=== PATIENT | female | born 2000 | race Caucasian/White ===

== ENCOUNTER 2021-09-07 22:26 | Inpatient (IN) ==
[2021-09-07 22:50] VITALS: BMI 36.0
[2021-09-07] MEDS ORDERED: NORMODYNE TAB 100 MG PO ONE (23:22)
[2021-09-07] MEDS ORDERED: NORMODYNE TAB 100 MG ONE (23:27)
[2021-09-07 23:28] LABS: BILIRUBIN,URINE NEGATIVE (NEGATIVE); BLOOD/HEMOGLOBIN,URINE NEGATIVE (NEGATIVE); GLUCOSE, URINE NEGATIVE (NEGATIVE); KETONES,URINE NEGATIVE (NEGATIVE); LEUKOCYTE ESTERASE ,URINE 1+ (NEGATIVE); NITRITES,URINE NEGATIVE (NEGATIVE); PROTEIN,URINE 3+ (NEGATIVE); UROBILINOGEN,URINE NORMAL (NORMAL)
[2021-09-07 23:33] LABS: APPEARANCE,URINE CLEAR (CLEAR); BACTERIA,URINE NEGATIVE /HPF (NEGATIVE); COLOR,URINE STRAW (YELLOW); RBC,URINE NONE SEEN /HPF (0-3); SQUAMOUS EPITHELIAL CELL,UR FEW /HPF (NEGATIVE)
[2021-09-07 23:34] LABS: AMNISURE ROM TEST NO MEMBRANES RUPTURE (NO RUPTURE)
[2021-09-08 00:12] LABS: HEMOGLOBIN 11.9 g/dL (12.0-16.0); MEAN CORPUSCULAR HEMOGLOBIN 25.2 pg (27.0-34.0); MEAN PLATELET VOLUME 9.3 fL (7.4-11.0)
[2021-09-08 00:16] LABS: BASOPHILS % (AUTO) 0.3 % (0.2-1.0); EOSINOPHILS # (AUTO) 0.2 x10^3/uL (0.0-0.2); EOSINOPHILS % (AUTO) 1.5 % (0.9-2.9); HEMATOCRIT 36.1 % (36.0-47.0); INR 1.03 (0.8-1.3); LYMPHOCYTES # (AUTO) 4.4 X10^3/uL (1.3-2.9); LYMPHOCYTES % (AUTO) 31.2 % (21.0-51.0); MEAN CORPUSCULAR VOLUME 76.4 fL (80.0-100.0); MONOCYTES % (AUTO) 7.1 % (0.0-13.0); NEUTROPHILS # (AUTO) 8.4 x10^3/uL (2.2-4.8); NEUTROPHILS % (AUTO) 59.9 % (42.0-75.0); RED BLOOD COUNT 4.73 X10^6/uL (3.5-5.4); WHITE BLOOD COUNT 14.1 X10^3/uL (3.6-10.0)
[2021-09-08 00:22] LABS: ALANINE AMINOTRANSFERASE 12 Units/L (12-78); ALBUMIN 2.2 g/dL (3.4-5.0); ALKALINE PHOSPHATASE 182 Units/L (45-150); ASPARTATE AMINO TRANSFERASE 13 Units/L (15-37); BLOOD UREA NITROGEN 6 mg/dL (7-18); CALCIUM 8.8 mg/dL (8.5-10.1); CARBON DIOXIDE 24.8 mmol/L (21-32); CHLORIDE 106 mmol/L (98-107); COR CA(FOR HYPOALB) 10.2 mg/dL (8.5-10.1); CREATININE 0.69 mg/dL (0.55-1.02); SODIUM 138 mmol/L (136-145); TOTAL PROTEIN 6.4 g/dL (6.4-8.2); eGFR NON BLACK RACES > 60 (>60)
[2021-09-08] MEDS ORDERED: APRESOLINE INJ 20 MG VIAL IVP ONE ×2 (00:40→01:15)
[2021-09-08] MEDS ORDERED: APRESOLINE INJ 20 MG VIAL ONE (00:45)
[2021-09-08 00:47] LABS: URIC ACID 4.2 mg/dL (2.6-6.0)
[2021-09-08] MEDS ORDERED: NORMODYNE INJ 100 MG VIAL ONE (01:39)
[2021-09-08] MEDS ORDERED: D5 LR + PITOCIN 10 UNITS/L 10 UNITS/1,000 ML BAG IV PRN (02:00)
[2021-09-08] MEDS ORDERED: AMPICILLIN VIAL 2 GRAM 2 G in NS 100 ML IV + SPIKE MINIBAG* 100 ML IV SCH (02:00)
[2021-09-08] MEDS ORDERED: D5 1/2 NS 1,000 ML 1,000 ML IV SCH (02:00)
[2021-09-08] MEDS ORDERED: PITOCIN ONE ×2 (02:01→03:28)
[2021-09-08] MEDS ORDERED: D5 1/2 NS 1,000 ML 1,000 ML IV ONE (02:01)
[2021-09-08] MEDS ORDERED: D5 LR + PITOCIN 10 UNITS/L 10 UNITS/1,000 ML BAG IV ONE (02:02)
[2021-09-08] MEDS ORDERED: D5 1/2 NS 1,000 mL + PITOCIN 20 UNITS/L IV 20 UNITS/1,000 ML BAG IV ONE (02:02)
[2021-09-08] MEDS ORDERED: BETADINE SOLN ONE (02:02)
[2021-09-08] MEDS ORDERED: LR 1,000 ML IV 1,000 ML IV ONE (02:42)
[2021-09-08] MEDS ORDERED: ANCEF VIAL 1 GRAM ONE (02:43)
[2021-09-08] MEDS ORDERED: NS 100 ML IV 100 ML ONE (02:43)
[2021-09-08] MEDS ORDERED: KETAMINE HCL ONE (03:06)
[2021-09-08] MEDS ORDERED: PEPCID 20 MG VIAL ONE (03:08)
[2021-09-08] MEDS ORDERED: ZOFRAN INJ 4 MG VIAL ONE (03:08)
[2021-09-08] MEDS ORDERED: ZEMURON 100 MG VIAL ONE (03:23)
[2021-09-08] MEDS ORDERED: QUELICIN (OR ANECTINE) ONE (03:23)
[2021-09-08] MEDS ORDERED: FENTANYL VIAL INJ 100 mcg ONE ×2 (03:28→04:07)
[2021-09-08] MEDS ORDERED: NEO-SYNEPHRINE INJ ONE (03:35)
[2021-09-08] MEDS ORDERED: DIPRIVAN VIAL 20 ML ONE (03:35)
[2021-09-08] MEDS ORDERED: EPHEDRINE SULFATE INJ ONE (03:35)
[2021-09-08] MEDS ORDERED: AMIDATE INJ 40 MG VIAL ONE (03:35)
[2021-09-08] MEDS ORDERED: PRECEDEX INJ VIAL IVP ONE (03:36)
[2021-09-08] MEDS ORDERED: DECADRON INJ ONE (03:43)
[2021-09-08] MEDS ORDERED: NAROPIN 0.75% EPI ONE (03:43)
[2021-09-08] MEDS ORDERED: BRIDION ONE (04:13)
[2021-09-08] MEDS ORDERED: DILAUDID INJ ONE (04:53)
[2021-09-08] MEDS: DILAUDID INJ IVP PRN ×3 (04:55→05:05)
[2021-09-08] MEDS ORDERED: REGLAN INJ 10 MG VIAL IVP PRN ×2 (04:58→05:19)
[2021-09-08] MEDS ORDERED: PHENERGAN INJ 25 MG IM PRN (04:58)
[2021-09-08] MEDS ORDERED: BARHEMSYS INJ IVP PRN (04:58)
[2021-09-08] MEDS ORDERED: BENADRYL INJ 50 MG VIAL IVP PRN ×2 (04:58→05:19)
[2021-09-08] MEDS ORDERED: ZOFRAN INJ 4 MG VIAL IVP PRN ×2 (04:58→05:19)
[2021-09-08] MEDS ORDERED: PERCOCET TAB 5/325 MG PO PRN (05:19)
[2021-09-08] MEDS ORDERED: ADACEL or BOOSTRIX TDaP VACCINE IM ONE ×2 (05:19→22:35)
[2021-09-08] MEDS ORDERED: MORPHINE SULFATE PCA 30 MG IVP PRN (05:19)
[2021-09-08] MEDS ORDERED: NARCAN INJ IVP PRN (05:19)
[2021-09-08] MEDS ORDERED: D5 1/2 NS 1,000 ML 1,000 ML with PITOCIN 20 UNITS IV SCH ×2 (05:19)
[2021-09-08] MEDS ORDERED: MYLICON TAB 80 MG CHEW PO PRN (05:19)
[2021-09-08] MEDS ORDERED: TORADOL 30 MG VIAL IVP PRN (05:19)
[2021-09-08] MEDS: PRENATAL PLUS PO SCH (08:34)
[2021-09-08] MEDS: PROTONIX TAB 40 MG PO SCH (08:34)
[2021-09-08] MEDS: NORMODYNE TAB 100 MG PO SCH ×2 (08:34→20:58)
[2021-09-08] MEDS: MOTRIN TAB 800 MG PO PRN (18:48)
[2021-09-08] MEDS ORDERED: COLACE CAP 100 MG PO ONE (20:45)
[2021-09-08] MEDS: COLACE CAP 100 MG PO SCH (20:58)
[2021-09-08] MEDS: PERCOCET TAB 5/325 MG PO PRN (21:00)
[2021-09-08] MEDS: BACTROBAN TOPICAL OINT TOP SCH (22:44)
[2021-09-09] MEDS: MOTRIN TAB 800 MG PO PRN ×3 (02:55→18:08)
[2021-09-09 05:16] LABS: HEMATOCRIT 25.8 % (36.0-47.0)
[2021-09-09 05:27] LABS: HEMOGLOBIN 8.5 g/dL (12.0-16.0)
[2021-09-09] MEDS: BACTROBAN TOPICAL OINT TOP SCH ×3 (05:37→22:15)
[2021-09-09] MEDS: NORMODYNE TAB 100 MG PO SCH ×2 (08:34→20:25)
[2021-09-09] MEDS: COLACE CAP 100 MG PO SCH ×2 (08:34→20:25)
[2021-09-09] MEDS: PRENATAL PLUS PO SCH (08:35)
[2021-09-09] MEDS: PROTONIX TAB 40 MG PO SCH (08:36)
[2021-09-10] MEDS: PERCOCET TAB 5/325 MG PO PRN ×2 (03:50→10:36)
[2021-09-10] MEDS: BACTROBAN TOPICAL OINT TOP SCH (05:44)
[2021-09-10] MEDS: PRENATAL PLUS PO SCH (08:34)
[2021-09-10] MEDS: COLACE CAP 100 MG PO SCH (08:34)
[2021-09-10] MEDS: NORMODYNE TAB 100 MG PO SCH (08:34)
[2021-09-10] MEDS: PROTONIX TAB 40 MG PO SCH (08:35)
[2021-09-10 10:22] VITALS: BP 146/86
== END 2021-09-10 12:20 | disposition home or self-care (01) | DRG 787 ==
LOC: ER 22:31 → LD 09-08 01:54 → MED/SURG 09-08 03:00
PROVIDERS: ADMIT Specialist; ATTEND Specialist
DX: B95.1 Streptococcus, group B, as the cause of diseases classified elsewhere; O99.613 Diseases of the digestive system complicating pregnancy, third trimester; Z37.0 Single live birth; O13.3 Gestational [pregnancy-induced] hypertension without significant proteinuria, third trimester; Z3A.38 38 weeks gestation of pregnancy; O24.410 Gestational diabetes mellitus in pregnancy, diet controlled; O98.82 Other maternal infectious and parasitic diseases complicating childbirth; O45.8X3 Other premature separation of placenta, third trimester; O99.892 Other specified diseases and conditions complicating childbirth; N87.0 Mild cervical dysplasia; Z01.818 Encounter for other preprocedural examination; K21.9 Gastro-esophageal reflux disease without esophagitis; O77.8 Labor and delivery complicated by other evidence of fetal stress